=== PATIENT | male | born 1950 | race Asian ===

== ENCOUNTER 2023-04-28 17:35 | Emergency (ER) | payer OTHER ==
[~2023-04-28] VITALS: Ht 170.2 cm; Wt 77.1 kg
[2023-04-28] MEDS ORDERED: ASPIRIN 81 MG TAB.CHEW PO ONE (18:00)
[2023-04-28] MEDS ORDERED: IPRATROPIUM BROMIDE 0.5 MG/2.5 ML NEBU NEB ONE (18:00)
[2023-04-28] MEDS ORDERED: ALBUTEROL SULFATE 2.5 MG/3 ML NEBU NEB ONE (18:00)
--- NOTE | 2023-04-28 18:01 | NUR ---
BIB family from home with c/o chest pain radiating down left arm and SOB. Patient assisted into gown, placed on monitor, informed of plan of care at this time. Bedside EKG done for MD review. #20g established in right ac, blood collected and sent to lab. No s/s of any dirstress noted at this time. Paient is a/o x4, respiration are even and unlabored with some wheezing noted, abd. is soft and non tender to palpation, no s/s of any edema, will continue to monitor.
[2023-04-28 18:07] LABS: HEMATOCRIT 31.5 % (36.7-47.1); MEAN CORPUSCULAR HEMOGLOBIN 22.3 uug (23.8-33.4); MEAN CORPUSCULAR VOLUME 70.2 fL (73.0-96.2); PLATELET COUNT (AUTO) 217 K/uL (152-348)
[2023-04-28] MEDS ORDERED: ASPIRIN 81 MG TAB.CHEW ONE (18:08)
--- NOTE | 2023-04-28 18:12 | NUR ---
Patient has been medicated as per order, family remains at bedside.
[2023-04-28] MEDS ORDERED: ALBUTEROL SULFATE 2.5 MG/3 ML NEBU ONE (18:14)
[2023-04-28] MEDS ORDERED: IPRATROPIUM BROMIDE 0.5 MG/2.5 ML NEBU ONE (18:15)
--- NOTE | 2023-04-28 18:16 | NUR ---
Respiratory at bedside for treatment.
[2023-04-28 18:21] VITALS: O2SAT 96
--- NOTE | 2023-04-28 18:33 | NUR ---
Patient aware he will be admitted to the hospital, awaiting labs and room assignment.
[2023-04-28] MEDS ORDERED: [UNRECOGNIZED DRUG - OTHER] PO (18:37)
[2023-04-28] MEDS ORDERED: [UNRECOGNIZED DRUG - OTHER] PO (18:37)
[2023-04-28] MEDS ORDERED: GLIM1TAB18 PO (18:37)
[2023-04-28] MEDS ORDERED: [UNRECOGNIZED DRUG - OTHER] PO (18:37)
[2023-04-28] MEDS ORDERED: [UNRECOGNIZED DRUG - OTHER] PO (18:37)
[2023-04-28] MEDS ORDERED: [UNRECOGNIZED DRUG - OTHER] PO (18:37)
[2023-04-28] MEDS ORDERED: ISOS30TA9 PO (18:37)
[2023-04-28] MEDS ORDERED: [UNRECOGNIZED DRUG - OTHER] PO (18:37)
[2023-04-28] MEDS ORDERED: [UNRECOGNIZED DRUG - REMARK] PO (18:37)
[2023-04-28] MEDS ORDERED: [UNRECOGNIZED DRUG - OTHER] PO (18:37)
[2023-04-28] MEDS ORDERED: [UNRECOGNIZED DRUG - OTHER] PO (18:37)
[2023-04-28 18:39] LABS: CARBON DIOXIDE 25 mmol/L (21-32); CHLORIDE 104 mmol/L (98-107); CREATININE 0.8 mg/dL (0.6-1.3); GLUCOSE 221 mg/dL (74-106); UREA NITROGEN, BLOOD 16 mg/dL (7-18)
--- NOTE | 2023-04-28 18:44 | NUR ---
Belongings list done, family took everything except pants and underwear.
[2023-04-28] MEDS ORDERED: ONDANSETRON 4 MG/2 ML VIAL ONE (18:52)
[2023-04-28] MEDS ORDERED: MORPHINE SULFATE 4 MG/1 ML DISP.SYRIN ONE (18:53)
--- NOTE | 2023-04-28 18:58 | NUR ---
Medicated as per order with morphine 4mg and zofran 4mg iv for c/ chest pain.
--- NOTE | 2023-04-28 19:10 | NUR ---
ANGEL LUIS stewart [facility] [place]
--- NOTE | 2023-04-28 19:22 | NUR ---
REPEAT EKG DONE, DR TORRES NOTIFIED OF POSSIBLE STEMI
--- NOTE | 2023-04-28 19:22 | NUR ---
Patient c/o CP. Dr Bill notified
--- NOTE | 2023-04-28 19:25 | NUR ---
DR TORRES VERBALLY ORDERED HEPARIN 4,000 UNITS PUSH
[2023-04-28] MEDS ORDERED: HEPARIN/D5W DRIP 500 ML IV PRN (19:30)
--- NOTE | 2023-04-28 19:30 | NUR ---
Called [facility] and spoke to child support case officer Mary to transfer patient for stemi. Faxed facesheet to .
[2023-04-28] MEDS ORDERED: HEPARIN/D5W DRIP 500 ML ONE (19:33)
[2023-04-28] MEDS ORDERED: IV NORMAL SALINE 250 ML IV ONE (19:35)
[2023-04-28] MEDS ORDERED: SWABABLE VALVE TRANSFER SET EA MC ONE (19:35)
[2023-04-28] MEDS ORDERED: IOHEXOL 350 100 ML INFUS..BTL ONE (19:35)
[2023-04-28] MEDS ORDERED: HEPARIN SODIUM,PORCINE 5,000 UNITS/ML VIAL ONE (19:38)
--- NOTE | 2023-04-28 19:39 | NUR ---
HEPARIN 4,000 UNITS IV PUSH GIVEN
[2023-04-28] MEDS ORDERED: MORPHINE SULFATE 2 MG/1 ML DISP.SYRIN ONE (19:40)
[2023-04-28] MEDS ORDERED: MORPHINE SULFATE 2 MG/1 ML DISP.SYRIN IV ONE (19:45)
--- NOTE | 2023-04-28 19:46 | NUR ---
Dr Hopkins relocation counselor interventionalist from [facility] accepts patient.
--- NOTE | 2023-04-28 19:47 | NUR ---
DR TORRES VERBALLY ORDERED NS 500 BOLUS
--- NOTE | 2023-04-28 19:48 | NUR ---
RA 83 AT BEDSIDE FOR 911 TRANSPORT
--- NOTE | 2023-04-28 19:49 | NUR ---
PATIENT TRANSERED TO [facility] VIA 099
[2023-04-28 19:50] VITALS: O2SAT 100
== END 2023-04-28 20:47 ==
LOC: ER 17:35
DX: R07.89 Other chest pain (principal); D50.9 Iron deficiency anemia, unspecified; J40 Bronchitis, not specified as acute or chronic; I10 Essential (primary) hypertension; I25.10 Atherosclerotic heart disease of native coronary artery without angina pectoris; E78.5 Hyperlipidemia, unspecified; K21.9 Gastro-esophageal reflux disease without esophagitis; E11.9 Type 2 diabetes mellitus without complications; Z79.899 Other long term (current) drug therapy
CPT/HCPCS: 99291; 96374; 80048; 83880; 85025; 85379; 87040 ×2; 84484; 93005 ×2; 71045; 94644; 83605; J1644 ×2; J2405; Q9967; J2270 ×2; J7040; 36415; A4663; J3590